=== PATIENT | male | born 1990 | race Hispanic/Latino ===

== ENCOUNTER 2017-08-30 14:15 | Emergency (ER) | payer OTHER ==
[2017-08-30 16:06] VITALS: BP 136/73; PULSE 66; O2SAT 98
[2017-08-30] MEDS ORDERED: TORAdol 30 mg Injection IM ONE (16:23)
[2017-08-30] MEDS ORDERED: Norflex 60 MG/2 ML IM ONE (16:23)
[2017-08-30] MEDS ORDERED: Celestone Soluspan 6MG/ML IM ONE (16:24)
[2017-08-30] MEDS ORDERED: TORAdol 30 mg Injection ONE (16:25)
[2017-08-30] MEDS ORDERED: Norflex 60 MG/2 ML ONE (16:26)
[2017-08-30] MEDS ORDERED: Celestone Soluspan 6MG/ML ONE (16:26)
--- NOTE | 2017-08-30 16:38 | ERPHSYRPT ---
- History of Present Illness Time Seen by Provider: 08/30/17 16:11 Source: patient, admission nurse coordinator (friend) Patient Subjective Stated Complaint: fell off truck approx 5 months ago injuring back states has gotten worse in last week or 2 Triage Nursing Assessment: to er c/o fall with injury to back approx 5 month lpta. pt states he gets a "large knot" in area to right lower back and buttocks. pt states pain increased with walking and after standing has numbness and tingling to ambreen feet Physician History: CC: back pain Hx: 27 y/o man is from [facility] and works as livestock laborer in [place]. He has 5 month hx of back pain. Radiates with tingling to right leg. No weakness. No fever or chills. Fell off a truck 5 months ago. No abd pain. Normal urination. Prior appendectomy in [facility]. Pain is aching, sharp, and moderate and worse with walking. Back Pain Location: lumbar spine Back Pain Radiation: feet (right) Severity of Pain-Max: moderate Severity of Pain-Current: moderate Hx Influenza Vaccination/Date Given: No - Review of Systems Constitutional: No Fever, No Chills Eyes: No Symptoms Ears, Nose, & Throat: No Symptoms Respiratory: No Cough, No Dyspnea Cardiac: No Chest Pain Abdominal/Gastrointestinal: No Abdominal Pain, No Nausea, No Vomiting Genitourinary Symptoms: No Dysuria Musculoskeletal: Back Pain, Fall (5 month ago), No Neck Pain Skin: No Rash Neurological: No Focal Weakness, No Headache, No Parasthesia All Other Systems: Reviewed and Negative - Past Medical History Pertinent Past Medical History: No - Past Surgical History Past Surgical History: Yes Gastrointestinal: Appendectomy - Social History Smoking Status: Never smoker Drug Use: none Patient Lives Alone: Yes - Nursing Vital Signs Nursing Vital Signs: Initial Vital Signs Temperature 98.1 F 08/30/17 16:00 Pulse Rate 66 08/30/17 16:00 Respiratory Rate 18 08/30/17 16:00 Blood Pressure 136/73 08/30/17 16:00 O2 Sat by Pulse Oximetry 98 08/30/17 16:00 Pain Scale Pain Intensity 9 - Physical Exam General Appearance: alert Eye Exam: PERRL/EOMI Ears, Nose, Throat Exam: normal ENT inspection, moist mucous membranes Neck Exam: normal inspection, non-tender, supple Respiratory Exam: normal breath sounds Cardiovascular Exam: regular rate/rhythm Gastrointestinal Exam: soft, No tenderness, No distention Male Genetalia Exam: normal genitalia Back Exam: normal inspection, vertebral tenderness (L4 right) Extremity Exam: normal inspection, normal range of motion Neurologic Exam: alert, oriented x 3, cooperative, critical care specialist II-XII nml as tested, sensation nml, other (patellar MSR's 2+ bilateral), No motor deficits Skin Exam: warm, dry, No rash SpO2 Interpretation: normal SpO2: 98 Oxygen Delivery: Room Air - Course Nursing assessment & vital signs reviewed: Yes - Radiology Exams lumbar X-ray Interpretation: Teleradiologist Report, Negative (6 segments with mild scoliosis) Ordered Tests: Active Orders 24 hr Category Date Time Status LUMBAR COMPLETE (MIN 4 VIEWS) Stat Exams 08/30/17 16:23 Completed Medication Summary Discontinued Medications Generic Name Dose Route Start Last Admin Trade Name Freq PRN Reason Stop Dose Admin Betamethasone Acet/Betameth SodPhos 12 mg 08/30/17 16:24 08/30/17 16:32 Celestone Soluspan 6mg/Ml IM 08/30/17 16:25 12 mg STAT ONE Administration Betamethasone Acet/Betameth SodPhos Confirm 08/30/17 16:26 Celestone Soluspan 6mg/Ml Administered 08/30/17 16:27 Dose 12 mg .ROUTE .STK-MED ONE Ketorolac Tromethamine 60 mg 08/30/17 16:23 08/30/17 16:32 Toradol 30 Mg Injection IM 08/30/17 16:24 60 mg STAT ONE Administration Ketorolac Tromethamine Confirm 08/30/17 16:25 Toradol 30 Mg Injection Administered 08/30/17 16:26 Dose 60 mg .ROUTE .STK-MED ONE Orphenadrine Citrate 60 mg 08/30/17 16:23 08/30/17 16:32 Norflex 60 Mg/2 Ml IM 08/30/17 16:24 60 mg STAT ONE Administration Orphenadrine Citrate Confirm 08/30/17 16:26 Norflex 60 Mg/2 Ml Administered 08/30/17 16:27 Dose 60 mg .ROUTE .STK-MED ONE - Progress Progress Note: 08/30/17 17:55 Instr given. Steroid injection given for sciatica. Counseled pt/family regarding: diagnosis, need for follow-up, rad results - Departure Time of Disposition: 17:56 Departure Disposition: Home Clinical Impression: Low back pain with right-sided sciatica Qualifiers: Chronicity: acute Back pain laterality: right Qualified Code(s): M54.41 - Lumbago with sciatica, right side Condition: Stable Critical Care Time: No Referrals: DOCTOR,NO FAMILY [Primary Care Provider] - Instructions: Sciatica (DC), Low Back Pain (DC) Additional Instructions: BACK INJURY 1. May apply moist heat frequently for relief of pain. Take care not to burn the skin. Do not use heat for more than 30 minutes at a time. 2. Try to sleep on a firm bed, flat on your back. 3. If no improvement is noticed in 2-3 days, follow up with your family physician. 4. If you notice any numbness, tingling, weakness, or problems with your bowel or bladder, you should call your family physician or return to the emergency department. Rx ibuprofen. Rx norflex for muscle relaxer- no driving or operating machinery. Follow up with primary care. Prescriptions: Ibuprofen 600 mg PO Q6H PRN PRN #24 tablet PRN Reason: Pain Orphenadrine Citrate 100 mg [Norflex 100 MG Tablet] 1 tab PO BID #10 tab
--- NOTE | 2017-08-30 17:23 | XRAY ---
Indication: Low back pain. No known injury. Comparison: None 5 views of the lumbar spine demonstrate 6 lumbar vertebral segments with mild dextroscoliosis centered at the L3-L4 level. No acute fracture, subluxation, or pars interarticularis defect. Visualized soft tissues unremarkable. Impression: 6 lumbar segments and mild scoliosis. Remaining lumbar spine negative.
== END 2017-08-30 18:41 | disposition home or self-care (01) ==
LOC: ED 14:15
DX: M54.41 Lumbago with sciatica, right side (principal)
CPT/HCPCS: 72110; 96372; 99284; J0702; J1885; J2360